=== PATIENT | female | born 1980 | race Caucasian/White ===

== ENCOUNTER → 2024-07-26 17:34 | Outpatient (REF) | payer BC, SELFPAY | LOC: MRI 3T 17:34 | PROVIDERS: ATTENDING PHYSICIAN Psychiatry & Neurology Neurology; FAMILY PHYSICIAN Nurse Practitioner Adult Health | DX: G35 Multiple sclerosis (principal) | CPT/HCPCS: 70553; 72156; A9575 ==

== ENCOUNTER → 2024-07-28 17:41 | Outpatient (REF) | payer BC, SELFPAY | LOC: MRI 3T 17:41 | PROVIDERS: ATTENDING PHYSICIAN Psychiatry & Neurology Neurology; FAMILY PHYSICIAN Nurse Practitioner Adult Health | DX: G35 Multiple sclerosis (principal) | CPT/HCPCS: 72157; A9575 ==

== ENCOUNTER → 2024-08-24 15:20 | Outpatient (REF) | payer BC, SELFPAY | LOC: HWRAD 15:20 | PROVIDERS: ATTENDING PHYSICIAN Nurse Practitioner Adult Health | DX: M72.2 Plantar fascial fibromatosis (principal); M79.671 Pain in right foot | CPT/HCPCS: 73650 ==

== ENCOUNTER → 2024-10-17 13:33 | Outpatient (REF) | payer BC, SELFPAY | LOC: HWRAD 13:33 | PROVIDERS: ATTENDING PHYSICIAN Nurse Practitioner Family; REFERRING PHYSICIAN Anesthesiology | DX: M54.50 Low back pain, unspecified (principal) | CPT/HCPCS: 72110 ==

== ENCOUNTER → 2025-11-06 15:39 | Outpatient (REF) | payer BC, SELFPAY | LOC: HWRAD 15:39 | PROVIDERS: ATTENDING PHYSICIAN Anesthesiology; FAMILY PHYSICIAN Nurse Practitioner Adult Health | DX: M25.551 Pain in right hip (principal); M25.552 Pain in left hip | CPT/HCPCS: 73522 ==

== ENCOUNTER 2025-11-10 22:04 | Observation (INO) | payer BC, SELFPAY ==
[2025-11-10] VITALS (8 sets, daily range): BP systolic 98–137; BP diastolic 68–97; BMI 39.1
[2025-11-10 16:56] LABS: Hematocrit 38.4 % (37.0-47.0); Hemoglobin 12.8 g/dL (12.0-16.0); Mean Corp Hgb Conc. 33.3 g/dL (33.0-37.0); Mean Corpuscular Volume 87.5 fL (81.0-99.0); Nucleated Red Blood Cells % 0 %; Platelet Count 238 10^3/uL (130-400); Red Cell Dist. Width 15.3 % (11.5-14.5)
[2025-11-10 17:02] LABS: HCG, Serum Qualitative Screen Negative
[2025-11-10 17:07] LABS: ALT (SGPT) 52 U/L (0-35); AST (SGOT) 40 U/L (14-36); Albumin 4.6 g/dl (3.5-5.0); Alkaline Phosphatase 67 U/L (38-126); Blood Urea Nitrogen 12 mg/dl (7-17); Calcium 9.5 mg/dl (8.4-10.2); Carbon Dioxide 26 mmol/L (22-30); Chloride 104 mmol/L (98-107); Glucose 83 mg/dl (70-99); Magnesium 2.2 mg/dl (1.6-2.3); Potassium 4.4 mmol/L (3.5-5.1); Sodium 135 mmol/L (135-145); Total Protein 7.0 g/dl (6.3-8.2); eGFR > 60.00
--- NOTE | 2025-11-10 19:02 | ED.GENMED ---
History of Present Illness
General
Chief Complaint: Numbness
Source: patient
Exam Limitations: none
Time Seen by Provider: 11/10/25 18:12
Nursing documentation reviewed up to this point in time: agreed with
History of Present Illness
History of Present Illness:
Patient is a 45-year-old female past medical history of MS presents to the ED for evaluation .Pt reports for the past 2 weeks she has had numbness/tingling to the top of her scalp (both sides ) . She then developed left sided facial numbness and
today felt like she had novicaine in her mouth area. sHe c/o of numbness /tingling and even felt that she was drooling because of her s/s.
She denies any associated headache. Denies any associated numbness tingling weakness to upper / lower extremities. Denies any diplopia. She is on Ocrevus twice yearly injection for MS. She is followed at [facility] by DR Ghotra and Michelle
Juan C, BLACKSMITH ASSISTANT.
Past History
Past History
ED Past Medical History: Asthma and Other (Multiple sclerosis)
ED Past Surgical History: , Gynecological and Other (gastric bypass)
Social History
Tobacco: Non-smoker
Alcohol: None
Drug: None
Personal:
Living: with family
Employment: Employed
Family History
Family History: Other (Noncontributory)
Phy Exam
General Physical Exam
General Presentation: no apparent distress
General age: appears stated age
General Skin: warm and dry
General Habitus: normal
General Mental: alert
General Hydration: appears well hydrated
Eye Exam
Eye Exam: PERRL and EOMI
Eye Exam General: PERRL: bilateral and EOM intact: bilateral
Pupil Exam: Bilateral: round and reactive
Course
Orders/Labs/Results
Orders:
Orders
11/10/25 Breakfast
Regular
At Your Request: Full Participation
11/10/25 16:36
CT Head W/o Iv Contrast Urgent
Comment:
Reason For Exam: MS history, facial numbness
Test Result ONCE
11/10/25 16:44
Complete Blood Count/With Diff Urgent
Comprehensive Metabolic Panel Urgent
HCG, Serum Qualitative Screen Urgent
Magnesium Urgent
11/10/25 21:53
Admit/Transfer Patient As Directed
Co-Sign Provider:
Level of Care: Observation services
Assign to:: Medical/Surgical
Physician / Group: Andrew
Diagnosis: Paresthesias, MS
PRN Pain Medication Management As Directed
May give lesser potent ordered pain med per pt: Yes
preference::
Protocol:: Medication orders for pain may be administered in a
manner that supports deferring to patient preference
when the pt is:
- Requesting an ordered lesser potent pain medication.
Least to most potent pain medications are defined
as: acetaminophen < NSAID < tramadol < opioids
(morphine, oxycodone, hydromorphone).
- Requesting a lesser dose of the same medication IF
ORDERED.
- Requesting a less intrusive route of administration
if both routes are prescribed by the provider (PO <
IV).
11/10/25 21:54
Code Status As Directed
Resuscitation Status: Full Code
11/10/25 23:20
Acetaminophen [Tylenol] 650 mg PO Q4HPRN PRN
11/10/25 23:20
NEUROLOGY CONSULT Routine
Consulting Provider: Braulio Montana
Was physician already notified: Yes
Reason for consult: MS, Paresthesias
Activity As Directed
Activity Level: Ambulate
With Assistance
EKG with chest pain [ECG as needed] As Directed
ECG as needed for:: Chest Pain
I/O [Intake/ Output] As Directed
Frequency: Per unit guidelines
Neurological Checks As Directed
Frequency: q4h
Pneumatic Compression Sleeves As Directed
Type: Knee high
Vital Signs As Directed
Frequency: Per unit guidelines
Weight As Directed
Frequency: Daily
Oxygen Therapy [O2 Therapy] [RESP] Routine
Titrate/Wean O2 to maintain O2 sat greater than (%): 94
Ot Eval And Treat Routine
PT Consult [Pt Eval And Treat] Routine
Activity Level: Ambulate
With Assistance
DX Deep Vein Thrombosis Video Routine
11/10/25 23:57
Glycohemoglobin (HgbA1c) Routine
TSH Reflex To Free T4 Routine
11/11/25 06:00
MR Brain W/o & With Contrast IN AM
Comment:
Reason For Exam: Paresthesias / MS
Recent pill cam endoscopy?: No
MR Cervical Spine Without & W IN AM
Comment:
Reason For Exam: Paresthesias / MS
Recent pill cam endoscopy?: No
11/11/25 08:00
Cholecalciferol (Vitamin D3) [VITAMIN D3 (cholecalciferol)] 25 mcg PO DAILY
Loratadine [Claritin] 10 mg PO DAILY
Multivitamin [Theragran] 1 tablet PO DAILY
Pregabalin [Lyrica] 100 mg PO BID
Rosuvastatin Calcium [Crestor] 10 mg PO DAILY
Tolterodine Extended Release [Detrol LA] 4 mg PO DAILY
11/11/25 08:02
Complete Blood Count/No Diff IN AM
11/11/25 18:00
Enoxaparin Sodium [Lovenox] 40 mg SC QPM
Abnormal Lab Results
11/10/25
16:44
WBC 4.6 L 10^3/uL
(4.8-10.8)
RDW 15.3 H %
(11.5-14.5)
Monocytes % 9.7 H %
(1.7-9.3)
AST 40 H U/L
(14-36)
ALT 52 H U/L
(0-35)
11/10/25 16:44
11/10/25 16:44
Vital Signs
Initial and Last Documented VS:
Initial Vital Signs
Temp Pulse Resp BP Pulse Ox
97.7 F 65 17 137/97 99
11/10/25 16:30 11/10/25 16:30 11/10/25 16:30 11/10/25 16:30 11/10/25 16:30
Last Documented Vital Signs
Temp Pulse Resp BP Pulse Ox
97.8 F 76 16 111/73 97
11/11/25 07:14 11/11/25 07:14 11/11/25 07:14 11/11/25 07:14 11/11/25 07:14
MDM/Problems Addressed
MDM/Problems Addressed:
As documented patient is a 45-year-old female with MS followed at [facility] on [facility] twice yearly. Patient started 2 weeks ago with a numbness and tingling sensation to the top of her scalp both sides and then start with numbness to the left side of
her face. Today she presented with complaints of numbness tingling to her lip area felt that she was drooling. No associated headache or diplopia no upper or lower extremity numbness tingling weakness. CT head negative. Case reviewed with
neurology who does not recommend MRI of the brain and cervical spine with and without contrast and if there are any signs of active demyelination then we will consider Solu-Medrol . will require admission
*Radiology
Radiology exam reviewed: radiology read reviewed
*Pulse Oximetry
SaO2: 99
Oxygen Mode of Delivery: Room air
Patient hypoxic: no
*Critical Care Note
Total Time (30-74mins, 75-104mins- exclusive of procedures): Not Applicable
ED Attending Note
-
Portions of this chart may have been created with voice recognition software.� Occasional wrong word or��sound alike� substitutions may have occurred due to the inherent limitations of voice recognition software.
Discharge Plan
Departure
Patient Disposition: Admit
Date of Disposition: 11/10/25
Time of Disposition: 21:06
Admit to: Med/Surg
Admit to doctor: hospitalist
Presentation/result/management discussed w/ accepting MD/DO: Hospitalist
Patient with high blood pressure during this ER visit?: Yes
Condition: Fair
Covid-19: Not Applicable
Discharge Problem:
paresthesias
Interventions
Interventions:
*General Assessment Last Done: 11/10/25 16:33
*Neglect/Abuse Screening Last Done: 11/10/25 16:33
*ED COVID-19 Vaccine History Last Done: 11/10/25 23:27
*ED Influenza Vaccine History Last Done: 11/10/25 16:33
[facility] Fall Risk Assessment Tool Last Done: 11/10/25 22:23
*Risk Screen - Suicide (C-SSRS) Last Done: 11/10/25 16:33
*Nursing Disposition Last Done: 11/10/25 23:17
ED- Neurological Assessment Last Done: 11/10/25 22:05
Discharge Date and Time
Discharge Date/Time: 11/10/25 23:18
--- NOTE | 2025-11-10 22:00 | HPS.HSE ---
Family Physician
-
Family Physician: Katelynn Martinez
Chief Complaint
-
Numbness / Tingling
History of Present Illness
Patient is a 45y F with PMH significant for MS, DDD and chronic pain who presents to ED complaining of numbness and tingling of the scalp and face. Patient reports tingling and pain of the scalp that has been ongoing for the past 2 weeks. She
also has noted significant fatigue over that same time period. Starting last night she noted numbness and tingling of the L forehead. This AM that had spread into her L face / cheek. At work today she noted that she was drooling from the L side
of her mouth. She denies any similar tingling / numbness in the L arm or leg.
Patient has MS originally diagnosed in 2019. She is on twice yearly Ocrevus and her most recent dose was 08/2025.
Medical History
Past Medical History
Past Medical History: Reports Other
Additional Past Medical History:
Multiple Sclerosis
Iron Deficiency Anemia
Migraine Headaches
Obesity
Left Foot Drop
DDD
Chronic Pain Syndrome
Past Surgical History: Reports Other
Additional Past Surgical History:
Gastric Bypass
Carpal Tunnel
D&C
Thyroid Cystectomy
Abdominoplasty
Breast Reduction
x 2
[place]
Social History
Tobacco: Non-smoker
Alcohol: None
Drug: None
Family History
Family History: Not pertinent
Allergies / Home Medications
Allergies reflects when Allergies were last updated in [facility].
Home Medications with original date entered in [facility]
Allergy/Medication List:
Allergies
Allergy/AdvReac Type Severity Reaction Status Date / Time
NKA - No Known Allergies Allergy PATIENT Uncoded 11/10/25 16:32
DENIES
ALLLERGIES
Home Medications
cyanocobalamin (vitamin B-12) 1,000 mcg/mL injection solution 1,000 mcg INJ MONTHLY 04/05/20
cholecalciferol (vitamin D3) 25 mcg (1,000 unit) tablet 1,000 units PO DAILY 03/25/22
multivitamin 1 tab PO DAILY 03/25/22
loratadine 10 mg tablet (Claritin) 10 mg PO DAILY 11/10/25
pregabalin 100 mg capsule (Lyrica) 100 mg PO BID 11/10/25
rosuvastatin 10 mg tablet 10 mg PO DAILY 11/10/25
tirzepatide 2.5 mg/0.5 mL subcutaneous pen injector (Mounjaro) 2.5 mg SC WEEKLY 11/10/25
vibegron 75 mg tablet (Gemtesa) 75 mg PO DAILY 11/10/25
Review of Systems
-
History Source: Patient
A 12 point ROS was completed and negative except as noted: Yes
Constitutional: Denies Fever or Chills
Respiratory: Denies Cough or Trouble Breathing
Cardiac: Denies Chest Pain or Palpitations
Abdomen/GI: Denies Abdominal Pain, Nausea, Vomiting or Diarrhea
: Denies Dysuria or Frequency
Neurological: Reports Numbness; Denies Dizzy or Headache
Psych: Denies Depression or Anxiety
Physical Exam
Vital Signs
Vital Signs
Temp Pulse Resp BP Pulse Ox
97.7 F 74 17 98/68 97
11/10/25 16:30 11/10/25 21:30 11/10/25 21:30 11/10/25 19:00 11/10/25 21:30
Physical Exam
General: Other (45y F in no acute distress.)
HEENT: Moist mucous membranes; No PERRLA
Respiratory: Clear; No Wheezes, Rales or Rhonchi
Cardiac: S1/S2 and Regular Rhythm; No Murmur
GI: Soft, Non Tender, Non Distended and Normal Bowel Sounds
Musculoskeletal: No Clubbing, No Cyanosis and No Edema
Neuro: AO x 3 and Other (Decreased sensation L face. Normal strength / ROM.)
Laboratory Results
-
11/10/25 16:44
11/10/25 16:44
Laboratory Results
Total Bilirubin 0.7 mg/dl (0.2-1.3) 11/10/25 16:44
AST 40 U/L (14-36) H 11/10/25 16:44
ALT 52 U/L (0-35) H 11/10/25 16:44
Alkaline Phosphatase 67 U/L (38-126) 11/10/25 16:44
Impression/Plan
-
A/P: Patient is a 45y F with PMH significant for multiple sclerosis who presents to ED complaining of scalp / face numbness and tingling.
Facial Paresthesias
Multiple Sclerosis
- Observe overnight for further evaluation and treatment.
- Monitor for any changes in symptoms / exam.
- Neurology consulted for additional recommendations.
- MRI brain and C-spine ordered for AM.
- Consider IV steroids if evidence of new / progressive demyelinating lesions.
Chronic Pain
DDD
Migraines
- Stable. Continue usual outpatient medications.
DVT Prophylaxis: Lovenox
Code Status: Full
--- NOTE | 2025-11-10 23:30 | PTCARENOTE ---
received pt from ED. pt ambulated from stretcher to bed. pt A&O x 3. pt offers no current complaints. call garsia within reach. plan of care ongoing.
[2025-11-10] MEDS: CRESTOR 10 MG PO (23:47)
[2025-11-10] MEDS: LYRICA 100 MG PO (23:47)
[2025-11-11 07:14] VITALS: BP 111/73
[2025-11-11 08:33] LABS: Hematocrit 35.5 % (37.0-47.0); Hemoglobin 11.8 g/dL (12.0-16.0); Mean Corp Hgb Conc. 33.2 g/dL (33.0-37.0); Mean Corpuscular Volume 85.1 fL (81.0-99.0); Platelet Count 199 10^3/uL (130-400); Red Cell Dist. Width 15.3 % (11.5-14.5)
--- NOTE | 2025-11-11 08:42 | W.PN.HOSP.TC ---
Today's Communication/Plan
-
Neurology consult
discharge home if MRI negative otherwise if MRI shows MS flareup to upgrade to inpatient and start IV steroid
Assessment / Plan
Assessment / Plan
Impression:
Patient is a 45y F with PMH significant for MS, DDD and chronic pain who presents to ED complaining of numbness and tingling of the scalp and face. Patient reports tingling and pain of the scalp that has been ongoing for the past 2 weeks. She
also has noted significant fatigue over that same time period. Starting last night she noted numbness and tingling of the L forehead. This AM that had spread into her L face / cheek. At work today she noted that she was drooling from the L side
of her mouth. She denies any similar tingling / numbness in the L arm or leg.
Patient has MS originally diagnosed in 2019. She is on twice yearly Ocrevus and her most recent dose was 08/2025.
Assessment/plan:
Facial Paresthesias / Multiple Sclerosis
Admitted for observation overnight for further evaluation and treatment
Monitor for any changes in symptoms or neurological exam
Neurology consulted for additional recommendations
MRI brain and cervical spine ordered with and without contrast
Consider IV steroids if evidence of new or progressive demyelinating lesions
Discharge home if MRI negative
Chronic Pain / DDD / Migraines
Stable
Continue usual outpatient medications
DVT Prophylaxis
Lovenox
Code Status
Full
Slightly elevated liver enzymes.
Not clinically significant
CODE STATUS: Full code
DVT prophylaxis: Lovenox
Diet: Regular diet
Disposition:
Neurology consult
discharge home if MRI negative otherwise if MRI shows MS flareup to upgrade to inpatient and start IV steroid
Total time spent on today's encounter was 55 minutes which included time spent in counseling the patient/family regarding diagnosis and treatment plan as listed above, goals of care, and symptom management. Case was discussed with nursing staff,
specialists, and care coordinators/case management. All labs and imaging personally reviewed by me. Remainder the time spent in detailed review of previous records, lab data, imaging, and other medical provider documentation.
Part of this note was created using voice recognition system. Occasional wrong word or �sound alike� substitutions may have inadvertently occurred due to the inherent limitations of voice recognition software. If noted kindly bring it to my
attention for correction.
Anticipated Discharge: Within 24 hours
Subjective/Interval History
-
Date of Service: November 11, 2025
Patient seen and examined at bedside, minimal facial numbness and overall scalp numbness but otherwise denies any chest pain or shortness of breath, no abdominal pain, no nausea, no vomiting, no diarrhea or constipation.
Objective Data
-
Labs:
Laboratory Results
11/11/25
08:02
WBC 3.4 L
Hgb 11.8 L
Hct 35.5 L
Plt Count 199
Sodium Pending
Potassium Pending
Chloride Pending
Carbon Dioxide Pending
BUN Pending
Creatinine Pending
Glucose Pending
Calcium Pending
Vital Signs:
Vital Signs
Temp Pulse Resp BP Pulse Ox
98.8 F 83 16 103/72 97
11/10/25 23:42 11/10/25 23:42 11/10/25 23:42 11/10/25 23:42 11/10/25 23:45
Physical Exam
-
General: Well Developed, Well Nourished, No Apparent Distress and Comfortable
HEENT: Normocephalic, Atraumatic, Moist Mucous Membranes, No Ptosis, PERRLA and Nose Appears Normal
Respiratory: Clear to Auscultation and Non Labored Respirations
Cardiac: Regular Rhythm and S1/S2
Breast: Deferred by me
GI: Soft, Nontender, Nondistended and Normal Bowel Sounds
Genito-urinary: No Costovertebral Tender
Musculoskeletal: No Clubbing, No Cyanosis and No Edema
Skin: Warm
Neuro: Awake, Alert, Oriented, AO x 3 and No Motor Deficits
Psych: Calm
Data Reviewed
-
Diagnostic Radiology: Image personally visualized and interpreted and Report Reviewed by me
CT Scan: Image personally visualized and interpreted and Report Reviewed by me
Ultrasound: Image personally visualized and interpreted and Report Reviewed by me
MRI: Image personally visualized and interpreted and Report Reviewed by me
Medical Tests (Nuc Med, Echo etc): Image personally visualized and interpreted and Report Reviewed by me
Labs: Labs Reviewed by me
Old Records: Reviewed
[2025-11-11 08:55] VITALS: BP 112/72; PULSE 74
[2025-11-11] MEDS: THERAGRAN 1 TABLET PO (09:04)
[2025-11-11] MEDS: DETROL LA 4 MG PO (09:04)
[2025-11-11] MEDS: LYRICA 100 MG PO (09:04)
[2025-11-11] MEDS: VITAMIN D3 (cholecalciferol) 25 MCG PO (09:04)
[2025-11-11] MEDS: CLARITIN 10 MG PO (09:04)
--- NOTE | 2025-11-11 09:29 | CON.NEURO4 ---
Consultation - Neurology 4
-
CONSULTING PHYSICIAN: Dr. Braulio Montana
REFERRING PHYSICIAN: Dr. Emy Valladares
DICTATED BY: Dr. Braulio Montana
DATE/TIME OF REQUEST: 11/11/2025
DATE/TIME OF CONSULTATION: 11/11/2025
Reason for Consultation: Numbness and tingling
ASSESSMENT AND PLAN:
Patient is a 45 years old female, with PMH significant for MS, DDD and chronic pain who presents to ED complaining of numbness and tingling of the scalp and face. Patient reports tingling and pain of the scalp that has been ongoing for the past
2 weeks. She denies any speech difficulty or any new weakness or numbness of her arms or legs, but she says that she has a mild left leg weakness which is chronic.
Patient has MS originally diagnosed in 2019. She is on Ocrevus twice yearly and her most recent dose was 08/2025.
The patient will call her MS specialist on Thursday regarding the plan to increase pregabalin gradually. She complains of drowsiness when the dose of pregabalin was increased in the past. The patient only has mild sensory symptoms and she is not a
candidate for high-dose steroids therapy.
Discussed with Dr. Emy Valladares.
. CT of the head does not show an acute abnormality.
. MRI brain:
No acute intracranial abnormality noted. No acute infarct. Stable isolated small focus of signal alteration in the lateral right frontal subcortical white matter. No other significant abnormal parenchymal signal intensity. No abnormal enhancement.
. MRI cervical spine:
No intrinsic cervical cord signal alteration or abnormal enhancement. No focal protrusion, central canal, or foraminal stenosis.
History of Present Illness:
Patient is a 45 yers old female, with PMH significant for MS, DDD and chronic pain who presents to ED complaining of numbness and tingling of the scalp and face. Patient reports tingling and pain of the scalp that has been ongoing for the past 2
weeks. She also has noted significant fatigue over that same time period. Day before yesterday, she noted numbness and tingling of the left side of the forehead. yesterday morning, that had spread into her left side of face and cheek. At work
yesterday she noted that she was drooling from the left side of her mouth, which had now resolved. She denies any speech difficulty or any new weakness or numbness of her arms or legs, but she says that she has a mild left leg weakness which is
chronic.
Patient has MS originally diagnosed in 2019. She is on Ocrevus twice yearly and her most recent dose was 08/2025.
Past Medical History:
Multiple Sclerosis
Iron Deficiency Anemia
Migraine Headaches
Obesity
Left Foot Drop
DDD
Chronic Pain Syndrome
Surgical History:
Gastric Bypass
Carpal Tunnel
D&C
Thyroid Cystectomy
Abdominoplasty
Breast Reduction
x 2
Review of Systems:
The 10 point review of system was negative aside from as given the above history of present illness.
Neurologic Examination:
Alert and oriented x 3, she knows her age and the month
Speech is clear
Cranial nerves II to XII grossly intact
The motor strength is grossly 5-/5 in the left lower extremity, and is grossly 5/5 in the right lower extremity and bilateral upper extremities.
Sensation is grossly intact
There is no limb ataxia seen
Vital Signs and Labs
-
Vital Signs and Labs:
Vital Signs
Temp Pulse Resp BP Pulse Ox
36.6 C 76 16 111/73 97
11/11/25 07:14 11/11/25 07:14 11/11/25 07:14 11/11/25 07:14 11/11/25 07:14
Lab Results
11/11/25 08:02
Sodium Cancelled 11/11/25 08:02
Potassium Cancelled 11/11/25 08:02
BUN Cancelled 11/11/25 08:02
Glucose Cancelled 11/11/25 08:02
Calcium Cancelled 11/11/25 08:02
LDL Cholesterol, Calc Cancelled 11/11/25 08:02
Medications
-
Active Medications
Generic Name Dose Route Start Last Admin
Trade Name Freq PRN Reason Stop Dose Admin
Acetaminophen 650 mg 11/10/25 23:20
Acetaminophen 325 Mg Tablet PO 12/08/25 23:19
Q4HPRN PRN
Mild Pain / Temp > 101
Cholecalciferol 25 mcg 11/11/25 08:00 11/11/25 09:04
Cholecalciferol (Vitamin D3) 25 Mcg Tablet (1,000 Units) PO 12/09/25 07:59 25 mcg
DAILY GEOVANY Administration
Enoxaparin Sodium 40 mg 11/11/25 18:00
Enoxaparin Sodium 40 Mg/0.4 Ml Syringe SC 12/09/25 17:59
QPM GEOVANY
Loratadine 10 mg 11/11/25 08:00 11/11/25 09:04
Loratadine 10 Mg Tablet PO 12/09/25 07:59 10 mg
DAILY GEOVANY Administration
Multivitamins Therapeutic 1 tablet 11/11/25 08:00 11/11/25 09:04
Multivitamin Tablet PO 12/09/25 07:59 1 tablet
DAILY GEOVANY Administration
Pregabalin 100 mg 11/11/25 08:00 11/11/25 09:04
Pregabalin 100 Mg Capsule PO 12/09/25 07:59 100 mg
BID GEOVANY Administration
Rosuvastatin Calcium 10 mg 11/10/25 23:45 11/10/25 23:47
Rosuvastatin (Crestor) 10 Mg Tablet PO 12/08/25 23:44 10 mg
QPM GEOVANY Administration
Sodium Chloride 0 flush 11/10/25 23:00
Sodium Chloride 0.9% (Flush) Syringe IV 12/08/25 22:59
PER PROTOCOL GEOVANY
Tolterodine Tartrate 4 mg 11/11/25 08:00 11/11/25 09:04
Tolterodine 4 Mg Extended Release Capsule PO 12/09/25 07:59 4 mg
DAILY GEOVANY Administration
Home Medications
�Medication �Instructions �Recorded
cyanocobalamin (vitamin B-12) 1,000 mcg INJ MONTHLY 04/05/20
1,000 mcg/mL injection solution
cholecalciferol (vitamin D3) 25 1,000 units PO DAILY 03/25/22
mcg (1,000 unit) tablet
multivitamin 1 tab PO DAILY 03/25/22
loratadine 10 mg tablet (Claritin) 10 mg PO DAILY 11/10/25
pregabalin 100 mg capsule (Lyrica) 100 mg PO BID 11/10/25
rosuvastatin 10 mg tablet 10 mg PO DAILY 11/10/25
rosuvastatin 10 mg tablet (Crestor) 10 mg PO DAILY 11/10/25
tirzepatide 2.5 mg/0.5 mL 2.5 mg SC WEEKLY 11/10/25
subcutaneous pen injector
(Mounjaro)
vibegron 75 mg tablet (Gemtesa) 75 mg PO DAILY 11/10/25
[2025-11-11 09:30] VITALS: BP 112/72; PULSE 83; O2SAT 99
--- NOTE | 2025-11-11 09:49 | PTOTSP ---
Pt presents to OT with continued numbness along left side of face and scalp; no facial droop. Pt exhibits good UB AROM, strength, sensation and coordination and grossly intact vision and cognition. Currently at mod I/I level with basic self care,
transfers and functional mobility in room and bathroom without AD; uses SPC for increased distances. No further skilled OT indicated at this time.
[2025-11-11 09:55] LABS: Glycohemoglobin (HgbA1c) 5.3 % (4.0-5.9)
[2025-11-11 10:12] LABS: Blood Urea Nitrogen 12 mg/dl (7-17); Calcium 9.4 mg/dl (8.4-10.2); Carbon Dioxide 27 mmol/L (22-30); Chloride 104 mmol/L (98-107); Estimated Creatinine Clearance 116 ml/min; Glucose 87 mg/dl (70-99); HDL Cholesterol 71 mg/dl; LDL Cholesterol, Calculated 57 mg/dl; Potassium 4.5 mmol/L (3.5-5.1); Sodium 137 mmol/L (135-145); Very Low Density Lipoprotein 9 mg/dl (0-30); eGFR > 60.00
[2025-11-11] MEDS: TYLENOL 650 MG PO (12:42)
--- NOTE | 2025-11-11 12:57 | W.DCSUMMARY ---
Discharge Summary
Discharge Data
Date of Admission: 11/10/25
Date of Discharge: 11/12/25
Total time spent discharging patient (in min): 40
-
Pending Results: No
Hospital Course
Hospital course
Patient is a 45y F with PMH significant for MS, DDD and chronic pain who presents to ED complaining of numbness and tingling of the scalp and face. Patient reports tingling and pain of the scalp that has been ongoing for the past 2 weeks. She
also has noted significant fatigue over that same time period. Starting last night she noted numbness and tingling of the L forehead. This AM that had spread into her L face / cheek. At work today she noted that she was drooling from the L side
of her mouth. She denies any similar tingling / numbness in the L arm or leg.
Patient has MS originally diagnosed in 2019. She is on twice yearly Ocrevus and her most recent dose was 08/2025.
Both MRI brain and cervical spine with and without contrast shows no acute finding
Seen by neurology.
Okay to be discharged.
During hospitalization patient was treated from the following
Facial Paresthesias / Multiple Sclerosis
Admitted for observation overnight for further evaluation and treatment
Monitor for any changes in symptoms or neurological exam
Neurology consulted for additional recommendations
MRI brain and cervical spine ordered with and without contrast
Consider IV steroids if evidence of new or progressive demyelinating lesions
Both MRI brain and cervical spine with and without contrast shows no acute finding
Seen by neurology.
Okay to be discharged
Chronic Pain / DDD / Migraines
Stable
Continue usual outpatient medications
DVT Prophylaxis
Lovenox
Code Status
Full
Slightly elevated liver enzymes.
Not clinically significant
CODE STATUS: Full code
DVT prophylaxis: Lovenox
Diet: Regular diet
Disposition: DC home today
Total time spent on today's encounter was 40 minutes which included time spent in counseling the patient/family regarding diagnosis and treatment plan as listed above, goals of care, and symptom management. Case was discussed with nursing staff,
specialists, and care coordinators/case management. All labs and imaging personally reviewed by me. Remainder the time spent in detailed review of previous records, lab data, imaging, and other medical provider documentation.
Anticipated Discharge: Today
Discharge Plan
-
Patient Disposition: Home (Routine Discharge)
Discharge Diagnosis/Procedures: Left facial numbness
Diet: Regular
Activity: As tolerated
Referrals:
Katelynn Martinez CRNP [Family Provider, General]
Additional Discharge Medication Instructions: May need to increase dose of pregabalin gradually, discuss when follow up with PCP.
Prescriptions:
New
magnesium oxide 250 mg magnesium tablet
250 mg PO DAILY Qty: 30 0RF
Continued
cyanocobalamin (vitamin B-12) 1,000 MCG/ML solution
1,000 mcg INJ MONTHLY
multivitamin 1 EACH tablet
1 tab PO DAILY
cholecalciferol (vitamin D3) 1,000 UNITS tablet
1,000 units PO DAILY
loratadine [Claritin] 10 mg Tablet
10 mg PO DAILY
pregabalin [Lyrica] 100 mg Capsule
100 mg PO BID
Gemtesa 75 mg Tablet
75 mg PO DAILY
Mounjaro 2.5 mg/0.5 mL pen injector
2.5 mg SC WEEKLY
Changed
rosuvastatin [Crestor] 10 mg Tablet
10 mg PO HS Qty: 0 0RF
Discontinued
rosuvastatin 10 mg Tablet
10 mg PO DAILY
Discharge Orders:
Discharge Patient (As Directed); Ordered 11/11/25
Ordered By: Emy Valladares
Discharge Date and Time
Discharge Date/Time: 11/11/25 16:32
Print Language: CITIZ[place]
== END 2025-11-11 16:32 | disposition home or self-care (01) ==
LOC: 4 EAST ACU 22:04
PROVIDERS: Emergency Medicine; ADMITTING PHYSICIAN Hospitalist; ATTENDING PHYSICIAN General Practice; CONSULT PHYSICIAN Psychiatry & Neurology Neurology; EMERGENCY PHYSICIAN Emergency Medicine; FAMILY PHYSICIAN Nurse Practitioner Adult Health
DX: R20.2 Paresthesia of skin (principal); R20.0 Anesthesia of skin; G35.D Multiple sclerosis, unspecified; G89.4 Chronic pain syndrome; D50.9 Iron deficiency anemia, unspecified; G43.909 Migraine, unspecified, not intractable, without status migrainosus; E66.9 Obesity, unspecified; M21.372 Foot drop, left foot; Z98.84 Bariatric surgery status; Z68.39 Body mass index [BMI] 39.0-39.9, adult
CPT/HCPCS: 70450; 70553; 72156; 80048; 80053; 80061; 83036; 83735; 84443; 84703; 85025; 85027; 97162; 97166; 99285; A9575; G0378